=== PATIENT | male | born 1980 | race Caucasian/White ===

== ENCOUNTER 2020-07-12 22:52 | Emergency (ER) | payer OTHER ==
[~2020-07-12] VITALS: Ht 188 cm; Wt 104.3 kg
[2020-07-12 23:55] VITALS: BP_SYST 153
--- NOTE | 2020-07-12 23:55 | NUR ---
PT TO HORSEHEADSWAY BED FOR EVALUATION
--- NOTE | 2020-07-13 01:20 | NUR ---
DR. BONILLA AT BEDSIDE TO EVALUATE PT STATUS
[2020-07-13] MEDS ORDERED: LIDOCAINE 1%, 20 ML MDV 20 ML ONE (01:22)
[2020-07-13] MEDS ORDERED: LIDOCAINE 1% 10 MG/ML, 20 ML MDV INJ ONE (01:30)
[2020-07-13] MEDS ORDERED: DIPH-TET-PERTUS Vaccine 0.5 ML VIAL (ADACEL) I.M. ONE (02:30)
[2020-07-13] MEDS ORDERED: BACITRACIN 1 GM OINT TP ONE (03:29)
[2020-07-13 03:36] VITALS: BP_SYST 140
--- NOTE | 2020-07-13 03:36 | NUR ---
Patient given written and verbal discharge instructions and verbalizes understanding. ER MD BONILLA discussed with patient the results and treatment provided. Patient in stable condition. ID arm band removed. Rx of AUGMENTIN given. Patient educated on pain management and to follow up with PMD. Pain Scale 0/10. Opportunity for questions provided and answered. Medication side effect fact sheet provided.
== END 2020-07-13 03:36 | disposition home or self-care (01) ==
LOC: SED 22:52
DX: M79.645 Pain in left finger(s) (principal)
CPT/HCPCS: 12001; 90471; 90715; 99283; J2001

== ENCOUNTER 2020-07-14 08:54 | Emergency (ER) | payer OTHER ==
[~2020-07-14] VITALS: Ht 188 cm; Wt 103.4 kg
[2020-07-14 08:59] VITALS: BP_SYST 137
[2020-07-14 09:49] VITALS: BP_SYST 137
== END 2020-07-14 09:50 | disposition home or self-care (01) ==
LOC: SED 08:54
DX: Z48.00 Encounter for change or removal of nonsurgical wound dressing (principal)
CPT/HCPCS: 99282

== ENCOUNTER 2020-07-16 14:27 | Emergency (ER) | payer OTHER ==
[~2020-07-16] VITALS: Ht 188 cm; Wt 104.3 kg
[2020-07-16 14:44] VITALS: BP_SYST 127
[2020-07-16 15:21] VITALS: BP_SYST 127
== END 2020-07-16 15:21 | disposition home or self-care (01) ==
LOC: SED 14:27
DX: S61.217D Laceration without foreign body of left little finger without damage to nail, subsequent encounter (principal); Z48.02 Encounter for removal of sutures; X58.XXXD Exposure to other specified factors, subsequent encounter
CPT/HCPCS: 99281

== ENCOUNTER 2020-07-18 12:30 | Emergency (ER) | payer OTHER ==
[~2020-07-18] VITALS: Ht 188 cm; Wt 104.3 kg
[2020-07-18 12:48] VITALS: BP_SYST 153
[2020-07-18 14:08] VITALS: BP_SYST 144
== END 2020-07-18 15:38 | disposition home or self-care (01) ==
LOC: SED 12:30
DX: S61.217D Laceration without foreign body of left little finger without damage to nail, subsequent encounter (principal); X58.XXXD Exposure to other specified factors, subsequent encounter
CPT/HCPCS: 99281

== ENCOUNTER 2020-07-23 11:42 | Emergency (ER) | payer OTHER ==
[~2020-07-23] VITALS: Ht 188 cm; Wt 96.6 kg
[2020-07-23 11:43] VITALS: BP_SYST 143
[2020-07-23 12:23] VITALS: BP_SYST 143
== END 2020-07-23 12:24 | disposition home or self-care (01) ==
LOC: SED 11:42
DX: S61.217D Laceration without foreign body of left little finger without damage to nail, subsequent encounter (principal); X58.XXXD Exposure to other specified factors, subsequent encounter
CPT/HCPCS: 99281